=== PATIENT | female | born 1935 | race Caucasian/White ===

== ENCOUNTER 2017-04-11 12:12 | Emergency (ER) | payer MEDICARE, OTHER ==
[~2017-04-11] VITALS: Wt 79.5 kg
[~2017-04-11 12:12] MED LIST: ALEN70TA15 PO; AMLO-218 PO; EXEM25TA3 PO; LEVO50TA83 PO; LORA-408 PO
[2017-04-11] MEDS ORDERED: ACETAMINOPHEN 500 MG TAB PO STA (13:58)
[2017-04-11] MEDS ORDERED: TRAM50TA2 PO (15:11)
--- NOTE | 2017-04-11 15:25 | ERD ---
ER Documentation Chief Complaint Date/Time DATE: 04/11/17 TIME: 15:23 Chief Complaint lle pain and swelling, hx of fall 1 wk ago HPI 81-year-old female fell down after tripping 1 week ago. Complains of left ankle pain. She denies any head injury, neck pain, weakness, bleeding or lacerations ROS All systems reviewed and are negative except as per history of present illness. Medications Home Meds Active Scripts Tramadol HCl (Tramadol HCl) 50 Mg Tablet, 50 MG PO Q4 Y for PAIN, #15 TAB Prov:JESUS DESAI MD 04/11/17 Reported Medications Alendronate Sodium (Fosamax) 70 Mg Tablet, 70 MG PO WEEKLY 02/01/12 Lorazepam (Ativan) 1 Mg Tablet, 1 MG PO DAILY 02/01/12 Amlodipine Besylate* (Norvasc*) 10 Mg Tablet, 10 MG PO DAILY 02/01/12 Exemestane* (Aromasin*) 25 Mg Tablet, 25 MG PO DAILY 02/01/12 Levothyroxine Sodium* (Synthroid*) 50 Mcg Tablet, 50 MCG PO DAILY 02/01/12 Allergies Allergies: Coded Allergies: No Known Drug Allergy (Verified Allergy, Unknown, 04/30/14) PMhx/Soc History of Surgery: Yes (L BREAST MASTECTOMY, OPEN HEART, HERNIA, THYROID) Anesthesia Reaction: No Hx Neurological Disorder: No Hx Respiratory Disorders: No Hx Cardiac Disorders: Yes (HTN) Hx Psychiatric Problems: No Hx Miscellaneous Medical Probl: Yes (L BREAST CA, DVT LEFT LEG) Hx Alcohol Use: No Hx Substance Use: No Hx Tobacco Use: No Smoking Status: Never smoker Physical Exam Vitals Vital Signs Date Time Temp Pulse Resp B/P Pulse Ox O2 Delivery O2 Flow Rate FiO2 04/11/17 12:16 99.8 75 20 156/88 98 Physical Exam Const: []Alert, not ill-appearing per Head: Atraumatic Eyes: Normal Conjunctiva ENT: Normal External Ears, Nose and Mouth. Neck: Full range of motion..~ No meningismus. Resp: Clear to auscultation bilaterally Cardio: Regular rate and rhythm, no murmurs Abd: Soft, non tender, non distended. Normal bowel sounds Skin: No petechiae or rashes Back: No midline or flank tenderness Ext: No cyanosis, or edema. There is some generalized swelling and tenderness around the left ankle. There is no erythema, warmth, restricted range of motion weakness or evidence of tendon or neurologic deficits or signs of ischemia. Neur: Awake and alert Psych: Normal Mood and Affect Results 24 hrs Current Medications Medications (Trade) Dose Ordered Sig/Trinity Route PRN Reason Start Time Stop Time Status Last Admin Dose Admin Acetaminophen (Tylenol Tab) 500 mg ONCE STAT PO 04/11/17 13:58 04/11/17 14:01 DC 04/11/17 14:06 Procedures/MDM X-ray left Tib/Fib 2V Interpreted by me: Bones: No fracture Joints: No dislocation Foreign body: None. Impression-normal left tib-fib x-ray X-ray left ankle 3V Interpreted by me: Bones: [No fracture] Joints: No dislocation. Patient has a normal left ankle x-ray Patient is placed in left ankle Pedro bandage. Patient presents with signs and symptoms of left ankle sprain without signs or symptoms of fracture, bacterial infection, deficits, ischemia. She will treated with tramadol at home, instructions for ice and elevation and primary care and orthopedic follow-up. Departure Diagnosis: Primary Impression: Ankle sprain Encounter type: initial encounter Involved ligament of ankle: unspecified ligament Laterality: left Qualified Code: S93.402A - Sprain of left ankle, unspecified ligament, initial encounter Condition: Stable Patient Instructions: Treating Ankle Sprains, Self-Care for Strains and Sprains Referrals: MIRANDA HOPKINS MD Additional Instructions: X-rays appear normal. Ice and elevate at home. See primary doctor and orthopedist for pain later this week. Recheck sooner for new or worsening symptoms. JESUS DESAI MD Apr 11, 2017 15:25
--- NOTE | 2017-04-11 15:36 | RADRPT ---
PROCEDURE: XR Ankle. CLINICAL INDICATION: Trauma. TECHNIQUE: AP and lateral views of the left ankle were performed. COMPARISON: None available FINDINGS: The distal tibia and fibula are normal in appearance. The ankle mortise is maintained. The lateral process of the talus is intact. There is no evidence of fracture. The talus and calcaneus are nor mal in appearance. There is a 2 mm plantar tendon enthesiophyte. There is no joint effusion. Ther e is moderate soft tissue swelling over the lateral ankle. IMPRESSION: 1. Moderate soft tissue swelling over the lateral ankle without evidence of underlying fracture. RPTAT: HGAS .Hector Villa MD, MD Date Time Electronically viewed and signed by .Hector Villa MD, on 04/11/2017 15:36 .S/
--- NOTE | 2017-04-11 15:37 | RADRPT ---
PROCEDURE: XR Tibia and Fibula. CLINICAL INDICATION: Left leg pain. TECHNIQUE: AP, lateral and oblique views of the left tibia and fibula were obtained. COMPARISON: No prior studies are available for comparison. FINDINGS: There are postoperative changes from medial hemiarthroplasty. The left tibia and fibula are normal in appearance. There is no evidence of fracture. There are soft tissue surgical clips from unknown prior surgery. IMPRESSION: 1. Postoperative changes from left medial hemiarthroplasty with intact surgical hardware. 2. No evidence of fracture of the left tibia / fibula. 3. Moderate soft tissue swelling over the lateral malleolus. RPTAT: HGAS .Hector Villa MD, MD Date Time Electronically viewed and signed by .Hector Villa MD, on 04/11/2017 15:37 .S/
== END 2017-04-11 15:46 | disposition home or self-care (01) ==
LOC: FTE 12:12
DX: S93.402A Sprain of unspecified ligament of left ankle, initial encounter (principal); I10 Essential (primary) hypertension; W01.0XXA Fall on same level from slipping, tripping and stumbling without subsequent striking against object, initial encounter; Y92.9 Unspecified place or not applicable; Z85.3 Personal history of malignant neoplasm of breast
CPT/HCPCS: 73590; 73610

== ENCOUNTER 2017-10-07 16:19 | Inpatient (IN) | END 2017-10-10 16:04 | disposition home health service (06) | DRG 65 ==

== ENCOUNTER 2018-08-18 08:41 | Observation (INO) | payer MEDICARE, OTHER ==
[~2018-08-18] VITALS: Ht 157.5 cm; Wt 74.4 kg
[2018-08-18] VITALS (7 sets, daily range): BP systolic 152–174; BP diastolic 64–66; PULSE 64–84; RESP 16–18; Ht 157.5 cm; Wt 74.4 kg
[~2018-08-18 08:41] MED LIST changes: -ALEN70TA15 PO; +ASPI-831 PO; +ATOR-2 PO; +ESOM40CA PO; -EXEM25TA3 PO; +EXEM25TA5 PO; -LEVO50TA83 PO; +LEVO50TA89 PO; -LORA-408 PO; +NOL20 PO; +RIVA20TA5 PO; +ZOLP10TA PO
--- NOTE | 2018-08-18 10:29 | ERD ---
ER Documentation Chief Complaint Chief Complaint PT NILDA RA FROM HOME WITH COMPLAINT OF WEAKNESS SINCE MORNING. HPI This is an 83-year-old female with a prior history of CVA, who presents for evaluation of generalized weakness, this is associated with intermittent slurred speech that is now resolved. The patient denies chest pain or shortness of breath, she denies nausea or vomiting, she denies any history of trauma she denies fever. History was obtained from the patient as well as her family. Currently she is back at her neurologic baseline. ROS All systems reviewed and are negative except as per history of present illness. Medications Home Meds Active Scripts Levofloxacin* (Levaquin*) 500 Mg Tablet, 500 MG PO DAILY for 3 Days, #3 TAB Prov:PAUL ANTHONY 08/19/18 Aspirin (Aspirin) 81 Mg Chew, 81 MG PO DAILY, #30 TAB Prov:LUCILLE CONROY 10/10/17 Atorvastatin* (Atorvastatin*) 80 Mg Tablet, 80 MG PO HS, #30 TAB Prov:LUCILLE CONROY 10/10/17 Amlodipine Besylate* (Norvasc*) 10 Mg Tablet, 10 MG PO DAILY, #30 TAB Prov:LUCILLE CONROY 10/10/17 Reported Medications Zolpidem Tartrate* (Ambien*) 10 Mg Tablet, 10 MG PO QHS PRN for INSOMNIA, TAB 10/08/17 Tamoxifen Citrate* (Tamoxifen Citrate*) 20 Mg Tab, 20 MG PO DAILY, TAB 10/07/17 Rivaroxaban* (Xarelto*) 20 Mg Tablet, 20 MG PO WITH DINNER, TAB 10/07/17 Esomeprazole Mag Trihydrate (Nexium) 40 Mg Capsule.dr, 40 MG PO AC BREAKFAST, #30 CAP 10/07/17 Exemestane* (Aromasin*) 25 Mg Tablet, 25 MG PO DAILY 02/01/12 Levothyroxine Sodium* (Synthroid*) 50 Mcg Tablet, 50 MCG PO DAILY 02/01/12 Allergies Allergies: Coded Allergies: No Known Drug Allergy (Verified Allergy, Unknown, 04/30/14) PMhx/Soc History of Surgery: Yes (BILAT TKR, UMBILICAL HERNIA, LEFT BREAST MASTECTOMY, QUAD. BYPASS SX) Anesthesia Reaction: No Hx Neurological Disorder: Yes (CVA ) Hx Respiratory Disorders: No Hx Cardiac Disorders: Yes (HTN, CAD) Hx Psychiatric Problems: Yes (INSOMNIA) Hx Miscellaneous Medical Probl: Yes (L BREAST CA, DVT LEFT LEG, Chronic left upper extremity edema, hypothyroid) Hx Alcohol Use: No Hx Substance Use: No Hx Tobacco Use: No Smoking Status: Never smoker Physical Exam Vitals Vital Signs Date Temp Pulse Resp B/P (MAP) Pulse Ox O2 O2 Flow FiO2 Time Delivery Rate 08/18/18 98.1 65 18 149/63 96 08:49 (91) Physical Exam Const: Pleasant, elderly appearing female in no acute distress. Head: Atraumatic Eyes: Normal Conjunctiva ENT: Normal External Ears, Nose and Mouth. Neck: Full range of motion. No meningismus. Resp: Clear to auscultation bilaterally Cardio: Regular rate and rhythm, no murmurs Abd: Soft, non tender, non distended. Normal bowel sounds Skin: No petechiae or rashes Back: No midline or flank tenderness Ext: No cyanosis, or edema Neur: Awake and alert, moves all 4 extremities, cranial nerves II to XII intact Psych: Normal Mood and Affect Result Diagram: 08/19/18 0611 08/19/18 0611 Results 24 hrs Laboratory Tests Test 08/18/18 08:59 08/18/18 09:04 08/18/18 09:05 08/18/18 09:25 Bedside Glucose 121 mg/dL POC Venous Lactate 1.4 mmol/L White Blood Count 6.3 10^3/ul Red Blood Count 3.79 10^6/ul Hemoglobin 11.2 g/dl Hematocrit 36.8 % Mean Corpuscular 97.1 fl Volume Mean Corpuscular 29.6 pg Hemoglobin Mean Corpuscular 30.4 g/dl Hemoglobin Concent Red Cell 15.8 % Distribution Width Platelet Count 318 10^3/UL Mean Platelet 9.9 fl Volume Immature 0.300 % Granulocytes % Neutrophils % 60.3 % Lymphocytes % 27.0 % Monocytes % 8.0 % Eosinophils % 3.8 % Basophils % 0.6 % Nucleated Red Blood 0.0 /100WBC Cells % Immature 0.020 10^3/ul Granulocytes # Neutrophils # 3.8 10^3/ul Lymphocytes # 1.7 10^3/ul Monocytes # 0.5 10^3/ul Eosinophils # 0.2 10^3/ul Basophils # 0.0 10^3/ul Nucleated Red Blood 0.0 10^3/ul Cells # Prothrombin Time 14.6 Sec Prothrombin Time 1.1 Ratio INR International 1.13 Normalized Ratio Sodium Level 146 mmol/L Potassium Level 4.7 mmol/L Chloride Level 110 mmol/L Carbon Dioxide 28 mmol/L Level Anion Gap 8 Blood Urea Nitrogen 31 mg/dl Creatinine 1.44 mg/dl Est Glomerular mL/min Filtrat Rate mL/min Glucose Level 107 mg/dl Calcium Level 9.7 mg/dl Total Bilirubin 0.1 mg/dl Direct Bilirubin 0.00 mg/dl Indirect Bilirubin 0.1 mg/dl Aspartate Amino 26 IU/L Transf (AST/SGOT) Alanine 19 IU/L Aminotransferase (A LT/SGPT) Alkaline 66 IU/L Phosphatase Troponin I 0.012 ng/ml Total Protein 8.0 g/dl Albumin 3.8 g/dl Globulin 4.20 g/dl Albumin/Globulin 0.90 Ratio Free Thyroxine 2.40 ug/ml Index Thyroxine (T4) 8.3 ug/dl Triiodothyronine 28.9 % (T3) Uptake Salicylates Level < 1.0 mg/dl Acetaminophen Level < 10.0 ug/ml Ethyl Alcohol Level < 10.0 mg/dl Urine Color YELLOW Urine Clarity SLIGHTLY CLOUDY Urine pH 5.0 Urine Specific 1.014 [place] Urine Ketones NEGATIVE mg/dL Urine Nitrite NEGATIVE mg/dL Urine Bilirubin NEGATIVE mg/dL Urine Urobilinogen NEGATIVE mg/dL Urine Leukocyte NEGATIVE Livia/ul Esterase Urine Microscopic 123 /HPF RBC Urine Microscopic 19 /HPF WBC Urine Squamous FEW /HPF Epithelial Cells Urine Bacteria FEW /HPF Urine Hemoglobin 3+ mg/dL Urine Glucose NEGATIVE mg/dL Urine Total Protein 1+ mg/dl Urine Opiates Negative Screen Urine Barbiturates Negative Urine Amphetamines Negative Screen Urine Negative Benzodiazepines Screen Urine Cocaine Negative Screen Urine Cannabinoids Negative Procedures/MDM This is an 83-year-old female presents for evaluation of intermittent weakness, and slurred speech. Her brain imaging in the ED was unremarkable for acute findings, her lab workup was also overall unremarkable. She had no infectious symptoms, I do not suspect encephalopathy, given her risk for vascular pathology, I recommend admission, for possible TIA workup. The patient was agreeable to this plan of care, she will be admitted to medicine. EKG: Rate/Rhythm: Normal Sinus Rhythm QRS, ST, T-waves: Incomplete right bundle branch block. No changes consistent w/ acute ischemia Impression: No evidence of ischemia or arrhythmia Departure Diagnosis: Primary Impression: Acute weakness Additional Impression: History of stroke Condition: Stable MATTHIEU DERAS MD Aug 18, 2018 10:29
[2018-08-18] MEDS ORDERED: NACL 0.9% 3 ML SYG IV SCH (12:00)
[2018-08-18] MEDS ORDERED: DOCUSATE SODIUM 100 MG CAP PO PRN (12:00)
[2018-08-18] MEDS ORDERED: morphine SULFATE/PF (2 MG/2 ML) SYG IV PRN (12:00)
[2018-08-18] MEDS ORDERED: ONDANSETRON 4 MG INJ IV PRN (12:00)
[2018-08-18] MEDS ORDERED: ACETAMINOPHEN 325 MG TAB PO PRN (12:00)
[2018-08-18] MEDS ORDERED: HYDROCODONE/APAP (5/325) TAB PO PRN (12:00)
--- NOTE | 2018-08-18 12:04 | HP ---
Date/Time of Note Date/Time of Note DATE: 08/18/18 TIME: 11:56 Assessment/Plan VTE Prophylaxis Pharmacological prophylaxis: rivaroxaban Lines/Catheters IV [facility] PORT[facility]A CATH Assessment/Plan Hospital Course 1. Acute metabolic/toxic encephalopathy Differential includes polypharmacy with excessive Ambien consumption, UTI and new infarction CT head shows no acute CVA Follow-up on MRI brain Neurology consultation obtained Empiric Rocephin, follow-up on urine culture, of note UA with pyuria but negative leukocyte esterase PT/OT/ST Carotid ultrasound and 2D echo Continue home aspirin, statin and Xarelto 2. History of right MCA distribution infarct with encephalomalacia Continue aspirin, statin and Xarelto 3. History of breast cancer status post mastectomy Continue home meds 4. Hypothyroidism Continue home Synthroid 5. Hypertension Hold home Norvasc and allow for permissive hypertension Prophylaxis: On Xarelto Result Diagram: 08/18/18 0905 08/18/18 0905 Results 24hrs Laboratory Tests Test 08/18/18 08:59 08/18/18 09:04 08/18/18 09:05 08/18/18 09:25 Bedside Glucose 121 POC Venous Lactate 1.4 White Blood Count 6.3 # Red Blood Count 3.79 L Hemoglobin 11.2 L Hematocrit 36.8 L Mean Corpuscular 97.1 Volume Mean Corpuscular 29.6 Hemoglobin Mean Corpuscular 30.4 L Hemoglobin Concent Red Cell 15.8 H Distribution Width Platelet Count 318 Mean Platelet 9.9 Volume Immature 0.300 Granulocytes % Neutrophils % 60.3 Lymphocytes % 27.0 Monocytes % 8.0 Eosinophils % 3.8 Basophils % 0.6 Nucleated Red 0.0 Blood Cells % Immature 0.020 Granulocytes # Neutrophils # 3.8 Lymphocytes # 1.7 Monocytes # 0.5 Eosinophils # 0.2 Basophils # 0.0 Nucleated Red 0.0 Blood Cells # Prothrombin Time 14.6 Prothrombin Time 1.1 Ratio INR International 1.13 Normalized Ratio Sodium Level 146 H Potassium Level 4.7 Chloride Level 110 Carbon Dioxide 28 Level Anion Gap 8 Blood Urea 31 H Nitrogen Creatinine 1.44 H Est Glomerular Filtrat Rate mL/min Glucose Level 107 Calcium Level 9.7 Total Bilirubin 0.1 L Direct Bilirubin 0.00 Indirect Bilirubin 0.1 Aspartate Amino 26 Transf (AST/SGOT) Alanine 19 Aminotransferase ( ALT/SGPT) Alkaline 66 Phosphatase Troponin I 0.012 Total Protein 8.0 Albumin 3.8 Globulin 4.20 H Albumin/Globulin 0.90 Ratio Free Thyroxine 2.40 Index Thyroxine (T4) 8.3 Triiodothyronine 28.9 (T3) Uptake Salicylates Level < 1.0 L Acetaminophen < 10.0 L Level Ethyl Alcohol < 10.0 H Level Urine Color YELLOW Urine Clarity SLIGHTLY CLOUDY A Urine pH 5.0 Urine Specific 1.014 [place] Urine Ketones NEGATIVE Urine Nitrite NEGATIVE Urine Bilirubin NEGATIVE Urine Urobilinogen NEGATIVE Urine Leukocyte NEGATIVE Esterase Urine Microscopic 123 H RBC Urine Microscopic 19 H WBC Urine Squamous FEW Epithelial Cells Urine Bacteria FEW A Urine Hemoglobin 3+ H Urine Glucose NEGATIVE Urine Total 1+ H Protein Urine Opiates Negative Screen Urine Barbiturates Negative Urine Amphetamines Negative Screen Urine Negative Benzodiazepines Screen Urine Cocaine Negative Screen Urine Cannabinoids Negative HPI/ROS Admit Date/Time Admit Date/Time Aug 18, 2018 at 10:28 Hx of Present Illness Patient is an 83-year-old female with a history of ischemic cerebral infarct in the right frontal lobe, breast cancer status post mastectomy, hypertension, hypothyroidism, DVT and anemia. Patient presents today with acute mental status changes, confusion with slurred speech. Patient reportedly fell to the ground while she was confused, patient did not have any episode of syncope per family. In the ER CT of the head showed no acute findings, patient's old right MCA distribution infarct with encephalomalacia was noted. Patient has no reported focal deficits, of note patient lives with her and does take Ambien for insomnia, patient's daughter is concerned that patient may have taken additional ambiens. Patient is unable to provide any history at this time and history is obtained from patient's daughter and previous documentation. ROS Subjective hx not possible: pt non-verbal PMH/Family/Social Past Medical History As per HPI Medications Current Medications IV Flush (NS 3 ml) 3 ml PER PROTOCOL IV ; Start 08/18/18 at 12:00; Status UNV Ondansetron HCl (Zofran Inj) 4 mg Q6H PRN IV NAUSEA AND/OR VOMITING; Start 08/18/18 at 12:00; Status UNV Acetaminophen (Tylenol Tab) 650 mg Q6H PRN PO PAIN LEVEL 1-3 OR FEVER; Start 08/18/18 at 12:00; Status UNV Acetaminophen/ Hydrocodone Bitart ([place]ell (5/325)) 1 tab Q6H PRN PO MODERATE PAIN LEVEL 4-6; Start 08/18/18 at 12:00; Status UNV Morphine Sulfate (morphine) 2 mg Q4H PRN IV SEVERE PAIN LEVEL 7-10; Start 08/18/18 at 12:00; Status UNV Docusate Sodium (Colace) 100 mg Q12H PRN PO CONSTIPATION; Start 08/18/18 at 12:00; Status UNV Enoxaparin Sodium (Lovenox) 40 mg DAILY SC ; Start 08/19/18 at 09:00; Status UNV Ceftriaxone Sodium 50 ml @ 100 mls/hr Q24H IVPB ; Start 08/18/18 at 12:00; Status UNV Aspirin (Aspirin) 81 mg DAILY PO ; Start 08/19/18 at 09:00; Status UNV Atorvastatin Calcium (Lipitor) 80 mg HS PO ; Start 08/18/18 at 21:00; Status UNV Exemestane (Aromasin) 25 mg DAILY PO ; Start 08/19/18 at 09:00; Status UNV Levothyroxine Sodium (Synthroid) 50 mcg DAILY PO ; Start 08/19/18 at 09:00; Status UNV Rivaroxaban (Xarelto) 20 mg WITH DINNER PO ; Start 08/18/18 at 17:55; Status UNV Miscellaneous Information 40 mg AC BREAKFAST PO ; Start 08/19/18 at 07:25; Status UNV Miscellaneous Information 20 mg DAILY PO ; Start 08/19/18 at 09:00; Status UNV Coded Allergies: No Known Drug Allergy (Verified Allergy, Unknown, 04/30/14) Past Surgical History Past Surgical Hx: coronary bypass surgery, other (Mastectomy) Family History Significant Family History: no pertinent family hx Social History Alcohol Use: rarely Smoking Status: Never smoker Drug Use: none Exam/Review of Systems Vital Signs Vitals Vital Signs Date Temp Pulse Resp B/P (MAP) Pulse Ox O2 O2 Flow FiO2 Time Delivery Rate 08/18/18 98.0 62 16 151/55 96 Room Air 11:05 (87) Exam Psych: confusion Respiratory: clear to auscultation Cardiovascular: regular rate and rhythm Gastrointestinal: soft; No distended Musculoskeletal: nl extremities to inspection PAUL ANTHONY Aug 18, 2018 12:04
--- NOTE | 2018-08-18 12:33 | NUR ---
Bedside swallow evaluation completed: Patient is an 83 y/o female who presented to the ER with complaints of weakness. She is now admitted to the telemetry unit and is being treated for: acute metabolic/toxic encephalopathy. Medical team is working to r/o UTI v. CVA. CT of the head was negative for acute findings, but awaiting f/u MRI. Patient's med hx is significant for right MCA distribution with encephalomalacia, breast CA s/p mastectomy, hypothyroidism, hypertension. Patient is currently on a regular diet with thin liquids. RN reports she passed the [employer] Swallow Screen on admission, and that pt is presenting with slurred speech. Receiving ultrasound on first attempt. Patient's daughter reports hx of dysphagia after initial CVA, but states the patient was able to return to baseline diet of reg/ thin at home as she recovered. Patient wears full set of dentures that are not with her and daughter reports she cannot chew well without them. Daughter assisted with translation throughout evaluation as patient is [place] speaking. Oral mech: Slight left facial weakness noted with labial retraction. Appears symmetrical at rest. Tongue at midline. Mild-mod reduced lingual strength per palpation. Adequate labial seal for bolus containment. Mild reduced hyolaryngeal excursion, per palpation. Patient presenting with generalized weakness. Appears lethargic. Red. breath support and vocal intensity. Trials: Limited accepted, however participated in thin liquids via spoon, cup and straw, puree and soft solids. Tolerated all trials without s/s aspiration. Unable to masticate chopped soft solids, would benefit from ground. Expectorated 1/2 pieces of fruit. Able to swallow other without difficulty. Increased time for bolus prep and initiation of a/p transit. Suspect mild delayed initiation of pharyngeal swallow with thin liquids. Recommendations: Soft GROUND with thin liquids Meds crushed in puree Upright at 90 degrees for all PO May benefit from RD consult as patient appears to be presenting with red. appetite ST to f/u
[2018-08-18] MEDS ORDERED: LABETALOL HCL 20MG INJ IV PRN (13:00)
--- NOTE | 2018-08-18 14:16 | CONDCODE ---
Medicare Criteria-> INP to OBS Patient still in hospital: Yes SI/IS Criteria met: Yes Attending MD agrees w/change: Yes Order entered in Pt. record: Yes Pt. does not meet Inp Criteria: Yes Medicare Inp->Obs Criteria met: Yes UR Phys Advisor eSign required: Yes I personally scribed for SANDRA ARMAS MD ([email or web address]) on 08/18/18 at 14:16. Electronically submitted by Ke Khan [facility] SANDRA ARMAS MD Aug 18, 2018 14:16
--- NOTE | 2018-08-18 14:16 | CONDCODE ---
Medicare Criteria-> INP to OBS Patient still in hospital: Yes SI/IS Criteria met: Yes Attending MD agrees w/change: Yes Order entered in Pt. record: Yes Pt. does not meet Inp Criteria: Yes Medicare Inp->Obs Criteria met: Yes UR Phys Advisor eSign required: Yes I personally scribed for PAUL ANTHONY ([email or web address]) on 08/18/18 at 14:16. Electronically submitted by Ke Khan Cmt ([facility]). PAUL ANTHONY Aug 18, 2018 14:16
[2018-08-18] MEDS: NYSTATIN 15 GM CR TOP SCH ×2 (15:45→22:25)
[2018-08-18] MEDS: CEFTRIAXONE 1 GM/50 ML (PMX) 50 ML IVPB SCH (15:46)
[2018-08-18] MEDS: TAMOXIFEN 10 MG TAB PO SCH (17:51)
[2018-08-18] MEDS ORDERED: RIVAROXABAN 20 MG TABLET PO SCH (17:55)
--- NOTE | 2018-08-18 18:29 | NUR ---
Patient arrived on unit from ED @ 1110, patient stable with permissive hypertension, A/Ox2-3, forgetful, anxious but cooperative, PERRLA, mild loss of vision, no numbness or tingling, normal sensation, no shortness of breath, cough, fever, chills, nausea, or vomiting, complaint of bilateral leg weakness more so on the left side, patient requiring 2 person assist to ambulate, NIHSS 4, bilateral lung sounds clear and present, on room air saturating 98%, sinus rhythm, abdomen nondistended, no tenderness, continent x2, no bowel movement, skin intact with left groin rash, right chest port a cath accessed and administering broad spectrum antibiotics for possible UTI, urine culture/UA sent, PT/OT/ST ordered, patient started on mechanical soft ground diet since dentures are at home, MRI brain, echo, and carotid duplex completed, pending neurology consult, restarted patient on oral chemo this evening, chemo precautions initiated, fall precautions initiated, limb alert on left arm for lymphedema related to previous left breast mastectomy, family at bedside, will endorse care to shift nurse manager.
[2018-08-18] MEDS ORDERED: ATORVASTATIN 80 MG TAB PO SCH (21:00)
[2018-08-18] MEDS ORDERED: ZOLPIDEM 5 MG TAB PO PRN (21:10)
[2018-08-19] VITALS: BP 182/76; PULSE 66; PULSE 78; RESP 18
[2018-08-19 04:00] VITALS: BP 174/74; PULSE 66; PULSE 78; RESP 22
[2018-08-19] MEDS ORDERED: LEVOTHYROXINE 50 MCG TAB PO SCH (06:00)
[2018-08-19] MEDS ORDERED: PANTOPRAZOLE (EC) 40 MG TAB PO SCH (06:00)
[2018-08-19 07:20] VITALS: BP 148/65; PULSE 77; RESP 20
[2018-08-19] MEDS ORDERED: NON-FORMULARY/PATIENT OWN MED (Esomeprazole Mag Trihydrate (Nexium) 40 MG) PO SCH (07:25)
--- NOTE | 2018-08-19 07:46 | NUR ---
Pt a/a/ox3 anxious, VS 174/74, afebrile, Pt's daughter concerned with pt did not receive BP meds. Dr Alcala was contacted , BP was expected to be high not exceed 220/120. BP meds available for SBP > 190. Pt got, sleeping pill Ambien, daughter reported pt was not able to sleep, not feeling good. However everytime nurse to do rounding pt was sleeping comfortably. Continue care plan.
[2018-08-19 08:00] VITALS: PULSE 74
[2018-08-19] MEDS: NYSTATIN 15 GM CR TOP SCH (08:04)
[2018-08-19] MEDS ORDERED: ENOXAPARIN 40 MG/0.4 ML SYG SC SCH (09:00)
[2018-08-19] MEDS ORDERED: EXEMESTANE 25 MG TAB PO SCH ×2 (09:00)
[2018-08-19] MEDS ORDERED: NON-FORMULARY/PATIENT OWN MED (Tamoxifen Citrate* 20 MG) PO SCH (09:00)
[2018-08-19] MEDS ORDERED: ASPIRIN 81 MG TAB PO SCH (09:00)
[2018-08-19] MEDS ORDERED: AMLODIPINE 10 MG TAB PO SCH (10:00)
[2018-08-19 11:46] VITALS: BP 148/85; PULSE 84; RESP 18
[2018-08-19] MEDS: CEFTRIAXONE 1 GM/50 ML (PMX) 50 ML IVPB SCH (11:48)
[2018-08-19] MEDS: TAMOXIFEN 10 MG TAB PO SCH (11:53)
[2018-08-19 12:14] VITALS: PULSE 78
[2018-08-19] MEDS ORDERED: LEVO500T48 PO (13:35)
--- NOTE | 2018-08-19 13:37 | PDOCDIS ---
Discharge Instructions CONDITION [id number] Patient Condition: [id number] Good HOME CARE INSTRUCTIONS: [id number] Special Diet: [id number] Mechanical soft ground ACTIVITY: [id number] Activity Restrictions: [id number] No Restrictions FOLLOW UP/APPOINTMENTS Follow-up Plan FOLLOW UP WITH YOUR PCP IN 1-2 WEEKS PAUL ANTHONY Aug 19, 2018 13:37
--- NOTE | 2018-08-19 14:34 | NUR ---
Patient cleared for discharge home, vitals stable, A/Ox3, PERRLA, on room air saturating 96%, no acute distress, no shortness of breath, cough, nausea, vomiting, chills, or fever, mild weakness, bilateral lung sounds clear, abdomen nondistended, no tenderness, bowel sounds x4 quadrants active, continent x2, skin intact, ambulatory with assist, arranging for walker at home, port a cath discontinued, nuclear monitoring technician discontinued and returned to nursing station, prescription given to patient, discharge packet reviewed and signed, belongings returned to patient, patient escorted off unit by family.
--- NOTE | 2018-08-19 15:08 | RADRPT ---
Echocardiogram Report Patient Name: CEFERINO ENGLISH Gender: Female Date: 1935 Study Date: 18-Aug-2018 Client Support Consultant: TYLER Location: I Height(Cm): 157 Weight(Kg): 71 BSA: 1.76 Ref. Physician: PAUL ANTHONY Quality: Technically Difficult Study Procedures: Transthoracic echocardiogram with 2D, M-Mode, and doppler examination, no subcostal images. Indications: Cerebrovascular Accident. 2D/M Mode Doppler Measurement Value Normal Ranges Measurement Value Normal Ranges LVIDd 2D 4.6 3.5 - 5.6 cm AV Peak Martin 1.4 m/sec LVIDs 2D 3.3 2.1 - 4.1 cm AV Peak PG 8.0 mmHg LVPWd 2D 0.9 0.6 - 1.1 cm LVOT Peak Martin 1.0 m/sec IVSd 2D 0.8 0.6 - 1.1 cm LVOT Peak PG 4.0 mmHg AoR Diam 2D 3.0 2.0 - 3.7 cm MV E Peak Martin 1.1 m/sec LA/Ao 2D 1 0 - 1 MV A Peak Martin 1.0 m/sec LA Dimen 2D 3.8 2.3 - 4.0 cm MV E/A 1.2 MV PHT 33.0 msec MV Decel Time 114 msec MV Decel [place] 10 Lat E` Martin 0.1 m/sec Lateral E/E` 13.7 Med E` Martin 0.1 m/sec MV E/A 1.2 MV PHT 33.0 msec MVA PHT 6.7 cm2 TR Peak Martin 2.4 m/sec TR Peak PG 23.0 mmHg PV Peak Martin 1.0 m/sec PV Peak PG 4.0 mmHg RVSP 33.0 mmHg Findings Left Ventricle: Normal left ventricular systolic function not all wall segments imaged well. Normal left ventricular cavity size. Normal left ventricular wall thickness. Ejection fraction is visually estimated at 60 %. Tissue Doppler/Mitral Doppler indices are consistent with pseudonormalization with mildly elevated left atrial pressure (Stage II diastolic dysfunction), patient could not Valsalva. E/E`=22. Right Ventricle: Normal right ventricular size. Normal right ventricular systolic function. Left Atrium: The left atrium is normal in size. Right Atrium: The right atrium is normal in size. Atrial Septum: Not well visualized. Mitral Valve: Mild mitral annular calcification. Mild mitral valve regurgitation. Aortic Valve: No hemodynamically significant aortic stenosis by doppler. Aortic cusps appear mildly calcified. Trileaflet aortic valve. Tricuspid Valve: Normal appearance of the tricuspid valve. Estimated peak PA systolic pressure 33 mmHg. There is mild tricuspid regurgitation. Pulmonic Valve: Normal pulmonic valve appearance. No evidence of pulmonic regurgitation. Pericardium: Normal pericardium with no significant pericardial effusion. Aorta: Normal aortic root. IVC: The IVC is not well visualized. Pulmonary Artery: Normal pulmonary artery size. Conclusions Normal left ventricular systolic function not all wall segments imaged well. Normal left ventricular cavity size. Normal left ventricular wall thickness. Ejection fraction is visually estimated at 60 %. Tissue Doppler/Mitral Doppler indices are consistent with pseudonormalization with mildly elevated left atrial pressure (Stage II diastolic dysfunction), patient could not Valsalva. E/E`=22. The left atrium is normal in size. Mild mitral annular calcification. Mild mitral valve regurgitation. No hemodynamically significant aortic stenosis by doppler. Aortic cusps appear mildly calcified. Trileaflet aortic valve. Normal appearance of the tricuspid valve. Estimated peak PA systolic pressure 33 mmHg. There is mild tricuspid regurgitation. Electronically Signed By: Sy Hurt 19-Aug-2018 15:07:32 -0800 Patient Name: CEFERINO ENGLISH Study Date: 18-Aug-2018 [id number]
--- NOTE | 2018-08-19 15:58 | NUR ---
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 Patient presents today with acute mental status changes, confusion with slurred speech. Patient reportedly fell to the ground while she was confused, patient did not have any episode of syncope per family. In the ER CT of the head showed no acute findings, patient's old right MCA distribution infarct with encephalomalacia was noted. Pt was admitted for further eval and tx , admitting dx includes : Acute metabolic/toxic encephalopat, History of right MCA distribution infarct with encephalomalacia, History of breast cancer status post mastectomy, Hypothyroidism, Hypertension Precautions : fall risks PLOF : pt lives in a home with and son , IND in all functional mobility , ADL's and IADL's . Pt is community ambulatory w/o AD. S: denies pain O: Cleared by RN to be seen today , pt agreeable to participate and with very supportive daughter present. Pt is MOD IND in rolling side <> side , SBA in supine <> sit transfers and requires CGA in sit <> stand transfers with vc in tasks sequencing and safety . Pt requested to ambulate without AD, pt requires CGA tolearted 100 ft pt displays unsteadiness and sways .Enocuraged to use FWW during gait . Pt was able to perform gait training using FWW x SBA x 200ft with vc in walker management , stepping strategies and maintaining upright posture . Pt may need assistance form nursing staffs or family during transfers . Assisted pt back to bed with all needs within reach , endorsed to RN after tx. A: Pt will benefit in continuing skilled PT to maximize IND in all functional mobility and be able to return to home . Pt will have a good family support once d/c home and may benefit in having FWW for ambulation . P: continue with POC
--- NOTE | 2018-08-19 17:42 | DS ---
Date/Time of Note Date/Time of Note DATE: 08/19/18 TIME: 17:38 Discharge Summary Admission/Discharge Info Admit Date/Time Aug 18, 2018 at 10:28 Discharge Date/Time Aug 19, 2018 at 14:45 Discharge Diagnosis 1. Acute metabolic/toxic encephalopathy-resolved Etiology likely secondary to excessive Ambien use and/or UTI MRI and CT head showed no acute stroke Carotid ultrasound with no significant stenosis PT eval appreciated, front wheel walker ordered Continue home aspirin, statin and Xarelto 2. History of right MCA distribution infarct with encephalomalacia Continue aspirin, statin and Xarelto 3. History of breast cancer status post mastectomy Continue home meds 4. Hypothyroidism Continue home Synthroid 5. 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 Patient presents with acute mental status changes, confusion with slurred speech. Patient reportedly fell to the ground while she was confused, patient did not have any episode of syncope per family. Patient reportedly take excess Ambien the night before, MRI and CT brain showed no acute stroke, patient's mentation did improve and patient did not work with PT. Patient was back to baseline according to family, on day of discharge patient's vitals, labs of exam are stable patient has no acute complaints questions are answered. Home Meds Active Scripts Levofloxacin* (Levaquin*) 500 Mg Tablet, 500 MG PO DAILY for 3 Days, #3 TAB Prov:PAUL ANTHONY 08/19/18 Aspirin (Aspirin) 81 Mg Chew, 81 MG PO DAILY, #30 TAB Prov:LUCILLE CONROY 10/10/17 Atorvastatin* (Atorvastatin*) 80 Mg Tablet, 80 MG PO HS, #30 TAB Prov:REGLUCILLE BONNER 10/10/17 Amlodipine Besylate* (Norvasc*) 10 Mg Tablet, 10 MG PO DAILY, #30 TAB Prov:LUCILLE CONROY 10/10/17 Reported Medications Zolpidem Tartrate* (Ambien*) 10 Mg Tablet, 10 MG PO QHS PRN for INSOMNIA, TAB 10/08/17 Tamoxifen Citrate* (Tamoxifen Citrate*) 20 Mg Tab, 20 MG PO DAILY, TAB 10/07/17 Rivaroxaban* (Xarelto*) 20 Mg Tablet, 20 MG PO WITH DINNER, TAB 10/07/17 Esomeprazole Mag Trihydrate (Nexium) 40 Mg Capsule.dr, 40 MG PO AC BREAKFAST, #30 CAP 10/07/17 Exemestane* (Aromasin*) 25 Mg Tablet, 25 MG PO DAILY 02/01/12 Levothyroxine Sodium* (Synthroid*) 50 Mcg Tablet, 50 MCG PO DAILY 02/01/12 Follow-up Plan FOLLOW UP WITH YOUR PCP IN 1-2 WEEKS Primary Care Provider Samir Singh MD Time spent on discharge: > 30 minutes PAUL ANTHONY Aug 19, 2018 17:42
== END 2018-08-19 14:45 | disposition home or self-care (01) ==
LOC: E/R 08:41 → TEL 10:28 → INTOOBSV 10:28 → TEL 16:58
PROVIDERS: ADMIT Internal Medicine; ATTEND Internal Medicine
DX: G93.41 Metabolic encephalopathy (principal); E03.9 Hypothyroidism, unspecified; I10 Essential (primary) hypertension; Z86.718 Personal history of other venous thrombosis and embolism
CPT/HCPCS: 36415; 70450; 70551; 71045; 80048; 80053; 80307; 81001; 82962; 83036; 83605; 83735; 84100; 84436; 84479; 84484; 85025; 85610; 87086; 87400; 92610; 93005; 93306; 93880; 97162; 99285; G0378; G8996; G8997; G8998; J0696; 99217